=== PATIENT | female | born 1950 | race Caucasian/White ===

== ENCOUNTER 2020-09-22 05:59 | Day surgery (SDC) | payer OTHER ==
[2020-09-20 12:29] VITALS: BMI 30.2
[2020-09-22] MEDS ORDERED: BENZOIN/ALOE VERA/STORAX/TOLU 58 ML BOTTLE ONE (07:09)
[2020-09-22] MEDS ORDERED: DEXAMETHASONE SOD PHOSPHATE/PF 10 MG/ML SDV ONE (07:35)
[2020-09-22] MEDS ORDERED: MIDAZOLAM HCL 2 MG/2 ML SINGLE DOSE VIAL ONE (07:36)
[2020-09-22] MEDS ORDERED: ROPIVACAINE HCL 0.5% 30ML VIAL ONE (07:36)
[2020-09-22] MEDS ORDERED: PROPOFOL 20 ML ONE ×2 (08:52)
[2020-09-22] MEDS ORDERED: ceFAZolin SODIUM 1 GM VIAL ONE (08:52)
[2020-09-22] MEDS ORDERED: DEXAMETHASONE SOD PHOSPHATE 4 MG/1 ML VIAL ONE (08:52)
[2020-09-22] MEDS ORDERED: ONDANSETRON 4 MG/2 ML VIAL ONE (08:52)
[2020-09-22] MEDS ORDERED: TRANEXAMIC ACID 1000 MG/10 ML VIAL ONE (09:06)
[2020-09-22] MEDS ORDERED: ONDANSETRON 4 MG/2 ML VIAL IVPUSH PRN (10:20)
[2020-09-22] MEDS ORDERED: oxyCODONE HCL 5 MG TABLET PO PRN (10:20)
[2020-09-22] MEDS ORDERED: LACTATED RINGERS SOLUTION 1,000 ML IV SCH (10:30)
[2020-09-22 10:56] VITALS: TEMP 97.7
[2020-09-22] MEDS ORDERED: oxyCODONE HCL 5 MG TABLET ONE (12:15)
[2020-09-22 13:53] VITALS: BP 120/67; PULSE 67
== END 2020-09-22 12:15 | disposition home or self-care (01) ==
LOC: FASU 05:59
PROVIDERS: ATTEND Orthopaedic Surgery Orthopaedic Surgery of the Spine
PROC: 0MN10ZZ Release Right Shoulder Bursa and Ligament, Open Approach (ICD-10-PCS; 2020-09-22)
PROC: 0LQ10ZZ Repair Right Shoulder Tendon, Open Approach (ICD-10-PCS; 2020-09-22)
PROC: 0PB90ZZ Excision of Right Clavicle, Open Approach (ICD-10-PCS; principal; 2020-09-22 09:16)
DX: M75.41 Impingement syndrome of right shoulder (principal); M75.121 Complete rotator cuff tear or rupture of right shoulder, not specified as traumatic
CPT/HCPCS: 88304-TC; 88311-TC; 94760